=== PATIENT | female | born 1965 | race American Indian/Alaskan Native ===

== ENCOUNTER 2017-06-29 08:28 | Day surgery (SDC) | payer BC ==
[2017-06-29 08:57] VITALS: BMI 29.2
[2017-06-29] MEDS ORDERED: Propofol 10 mg/ml Inj (20 ML) ONE (09:52)
[2017-06-29] MEDS ORDERED: Lidocaine Hydrochloride 10 ML INJ ONE (09:53)
[2017-06-29] MEDS ORDERED: Lactated Ringer's 1,000 ML IV ONE (10:00)
--- NOTE | 2017-06-29 10:00 | CP.SDSHP ---
Same Day Surgery H & P - History Proposed Procedure: EGD/ DILATION Pre-Op Diagnosis: SEE NOTES - Previous Medical/Surgical History Cardiac: Hypertension Neuro: Other Misc: Other Pain: 4.Moderate Pain Previous Surgical History: ORTH. SX. - Allergies Allergies: Allergies No Known Allergies Allergy (Verified 06/29/17 08:56) - Physical Exam General Appearance: N Vital Signs: Vital Signs 06/29/17 09:02 Temperature 97.5 F L Pulse Rate 80 Respiratory 16 Rate Blood Pressure 128/79 O2 Sat by Pulse 98 Oximetry Neuro: WNL Heart: Other Lungs: WNL GI: Other - {Optional Preform as Required} Breast: WNL Abdomen: Other Rectal: Other Integument: WNL : WNL Ortho: Other ENT: WNL - Impression Pt. Evaluated Today:Candidate for Anesthesia & Procedure: Yes - Date & Time Time: 09:59 Short Stay Discharge - Short Stay Discharge Admitting Diagnosis/Reason for Visit: PYLORIC STENOSIS Disposition: HOME/ ROUTINE
[2017-06-29] MEDS ORDERED: Pantoprazole 40 mg EC Tab PO STA (10:01)
[2017-06-29] MEDS ORDERED: Belladonna-Phenobarbital PO STA (10:15)
[2017-06-29] MEDS ORDERED: metroNIDAZOLE IV 500 mg/100 ml 500 MG/100 ML BAG IVPB STA (10:15)
[2017-06-29] MEDS ORDERED: Sucralfate 1 gm/10 ml Oral Susp UD PO ONE (10:40)
[2017-06-29 12:20] VITALS: TEMP 97.8
[2017-06-29 12:22] VITALS: O2SAT 95
[2017-06-29 12:28] VITALS: BP 111/62; PULSE 80; RESP 17
== END 2017-06-29 11:45 | disposition home or self-care (01) ==
LOC: C.ENDO 08:28
PROVIDERS: ATTEND Specialist
DX: K31.1 Adult hypertrophic pyloric stenosis (principal); K44.9 Diaphragmatic hernia without obstruction or gangrene
CPT/HCPCS: 43235; J2704; J2765; J3010; J7120

== ENCOUNTER 2017-07-04 06:45 | Day surgery (SDC) | payer BC ==
[2017-07-04 08:18] VITALS: TEMP 97.6
--- NOTE | 2017-07-04 08:43 | CP.SDSHP ---
Same Day Surgery H & P - History Proposed Procedure: colonscopy Pre-Op Diagnosis: SEE NOTES - Allergies Allergies: Allergies No Known Allergies Allergy (Verified 07/04/17 07:47) - Physical Exam Vital Signs: Vital Signs 07/04/17 07:52 Temperature 97.6 F Pulse Rate 80 Respiratory 20 Rate Blood Pressure 130/82 O2 Sat by Pulse 98 Oximetry Mental Status: Alert & Oriented x3 Neuro: WNL Heart: Other Lungs: WNL GI: Other - {Optional Preform as Required} Breast: WNL Abdomen: Other Rectal: Other [employer]: Other : WNL Ortho: Other ENT: WNL - Impression Pt. Evaluated Today:Candidate for Anesthesia & Procedure: Yes - Date & Time Time: 08:43 Short Stay Discharge - Short Stay Discharge Admitting Diagnosis/Reason for Visit: RECTAL BLEEDING Disposition: HOME/ ROUTINE
[2017-07-04] MEDS ORDERED: Propofol 10 mg/ml Inj (20 ML) ONE (08:47)
[2017-07-04] MEDS ORDERED: Lactated Ringer's 500 ML IV SCH (09:00)
[2017-07-04] MEDS ORDERED: Pantoprazole 40 mg EC Tab PO STA (09:05)
[2017-07-04] MEDS ORDERED: Belladonna-Phenobarbital PO ONE (09:30)
[2017-07-04 10:14] VITALS: RESP 11; O2SAT 100
[2017-07-04 10:32] VITALS: BP 117/66; PULSE 88
== END 2017-07-04 10:50 | disposition home or self-care (01) ==
LOC: C.ENDO 06:45
PROVIDERS: ATTEND Specialist
DX: K57.90 Diverticulosis of intestine, part unspecified, without perforation or abscess without bleeding (principal); K64.8 Other hemorrhoids
CPT/HCPCS: 45380; 88305; 88313; 88342; J2704; J3010; J7120

== ENCOUNTER 2017-10-03 08:06 | Day surgery (SDC) | payer BC ==
[2017-10-03 08:32] VITALS: BMI 30.1
--- NOTE | 2017-10-03 09:40 | CP.SDSHP ---
Same Day Surgery H & P - History Proposed Procedure: EGD Pre-Op Diagnosis: SEE NOTES - Previous Medical/Surgical History Cardiac: Hypertension Misc: Other Pain: 4.Moderate Pain Previous Surgical History: ORTHO. SX. - Allergies Allergies: Allergies No Known Allergies Allergy (Verified 10/03/17 08:32) - Physical Exam General Appearance: N Vital Signs: Vital Signs 10/03/17 08:35 Temperature 97.5 F L Pulse Rate 78 Respiratory 18 Rate Blood Pressure 123/73 O2 Sat by Pulse 98 Oximetry Mental Status: Alert & Oriented x3 Neuro: WNL Heart: Other Lungs: WNL GI: Other - {Optional Preform as Required} Breast: WNL Abdomen: Other Rectal: Other Integument: WNL : WNL Ortho: Other ENT: WNL - Impression Pt. Evaluated Today:Candidate for Anesthesia & Procedure: Yes - Date & Time Time: 09:42 Short Stay Discharge - Short Stay Discharge Admitting Diagnosis/Reason for Visit: DYSPHAGIA Disposition: HOME/ ROUTINE Referrals: Froylan Helms MD [Primary Care Provider] -
[2017-10-03] MEDS ORDERED: Lidocaine Hydrochloride 5 ML INJ ONE (09:42)
[2017-10-03] MEDS ORDERED: Propofol 10 mg/ml Inj (20 ML) ONE ×2 (09:42→09:49)
[2017-10-03 10:15] VITALS: TEMP 97.3
[2017-10-03] MEDS ORDERED: Sucralfate 1 gm/10 ml Oral Susp UD PO ONE (10:15)
[2017-10-03] MEDS ORDERED: Belladonna-Phenobarbital PO ONE (10:30)
[2017-10-03 10:44] VITALS: O2SAT 100
[2017-10-03 10:49] VITALS: BP 110/60; PULSE 80; RESP 17
== END 2017-10-03 11:49 | disposition home or self-care (01) ==
LOC: C.ENDO 08:06
PROVIDERS: ATTEND Specialist
DX: K31.1 Adult hypertrophic pyloric stenosis (principal); R13.14 Dysphagia, pharyngoesophageal phase; K22.2 Esophageal obstruction
CPT/HCPCS: 43245; J2704

== ENCOUNTER 2017-10-24 08:54 | Day surgery (SDC) | payer BC ==
[2017-10-23 13:49] VITALS: BMI 29.5
[2017-10-24 09:50] VITALS: TEMP 97.7
--- NOTE | 2017-10-24 10:53 | CP.SDSHP ---
Same Day Surgery H & P - History Proposed Procedure: EGD/DILATION Pre-Op Diagnosis: SEE NOTES - Previous Medical/Surgical History Cardiac: Hypertension Neuro: Backaches Misc: Other Pain: 4.Moderate Pain - Allergies Allergies: Allergies No Known Allergies Allergy (Verified 10/24/17 09:38) - Physical Exam General Appearance: N Vital Signs: Vital Signs 10/24/17 09:05 Temperature 97.7 F Pulse Rate 79 Respiratory 19 Rate Blood Pressure 139/80 O2 Sat by Pulse 99 Oximetry Neuro: WNL Heart: Other Lungs: WNL GI: Other - {Optional Preform as Required} Breast: WNL Abdomen: Other Rectal: Other Integument: WNL : WNL Ortho: Other ENT: WNL - Impression Pt. Evaluated Today:Candidate for Anesthesia & Procedure: Yes - Date & Time Time: 10:54 Short Stay Discharge - Short Stay Discharge Admitting Diagnosis/Reason for Visit: ESOPHAGITIS, UNSPECIFIED Disposition: HOME/ ROUTINE Referrals: Froylan Helms MD [Primary Care Provider] -
[2017-10-24] MEDS ORDERED: Propofol 10 mg/ml Inj (20 ML) ONE (10:54)
[2017-10-24] MEDS ORDERED: Belladonna-Phenobarbital PO STA (10:55)
[2017-10-24] MEDS ORDERED: Sucralfate 1 gm/10 ml Oral Susp UD PO ONE (11:20)
[2017-10-24 13:35] VITALS: O2SAT 98
[2017-10-24 13:38] VITALS: RESP 15
[2017-10-24 13:46] VITALS: BP 109/72; PULSE 80
== END 2017-10-24 12:40 | disposition home or self-care (01) ==
LOC: C.SDS 08:54 → C.ENDO 08:54
PROVIDERS: ATTEND Specialist
DX: K20.9 Esophagitis, unspecified (principal); K25.9 Gastric ulcer, unspecified as acute or chronic, without hemorrhage or perforation; K31.1 Adult hypertrophic pyloric stenosis
CPT/HCPCS: 43245; J2001; J2704; J2765; J3010

== ENCOUNTER 2017-11-28 06:22 | Day surgery (SDC) | payer BC ==
[2017-10-23 13:49] VITALS: BMI 29.5
--- NOTE | 2017-11-28 07:50 | CP.SDSHP ---
Same Day Surgery H & P - History Proposed Procedure: EGD/DILATION Pre-Op Diagnosis: SEE NOTES - Previous Medical/Surgical History Cardiac: Hypertension Neuro: Backaches Pain: 4.Moderate Pain - Allergies Allergies: Allergies No Known Allergies Allergy (Verified 10/24/17 09:38) - Physical Exam General Appearance: N Vital Signs: Vital Signs 11/28/17 06:50 Temperature 97.4 F L Pulse Rate 77 Respiratory 19 Rate Blood Pressure 136/75 O2 Sat by Pulse 98 Oximetry Mental Status: Alert & Oriented x3 Neuro: WNL Heart: Other Lungs: WNL GI: Other - {Optional Preform as Required} Breast: WNL Abdomen: Other Rectal: Other Integument: WNL : WNL Ortho: Other ENT: WNL - Impression Pt. Evaluated Today:Candidate for Anesthesia & Procedure: Yes - Date & Time Time: 07:50 Short Stay Discharge - Short Stay Discharge Admitting Diagnosis/Reason for Visit: GASTRIC ULCER, PYLORIC STENOSIS Disposition: HOME/ ROUTINE Referrals: Froylan Helms MD [Primary Care Provider] -
[2017-11-28] MEDS ORDERED: Propofol 10 mg/ml Inj (20 ML) ONE ×2 (07:52→08:02)
[2017-11-28] MEDS ORDERED: Lidocaine Hydrochloride 5 ML INJ ONE (07:53)
[2017-11-28] MEDS ORDERED: Lactated Ringer's 1,000 ML IV ONE ×2 (07:55)
[2017-11-28] MEDS ORDERED: Lactated Ringer's 500 ML IV SCH (08:15)
[2017-11-28 08:32] VITALS: TEMP 97.1
[2017-11-28] MEDS ORDERED: Sucralfate 1 gm/10 ml Oral Susp UD PO ONE (08:35)
[2017-11-28 08:46] VITALS: O2SAT 99
[2017-11-28 09:49] VITALS: BP 103/66; PULSE 76; RESP 17
== END 2017-11-28 09:30 | disposition home or self-care (01) ==
LOC: C.ENDO 06:22
PROVIDERS: ATTEND Specialist
DX: K31.1 Adult hypertrophic pyloric stenosis (principal); K25.9 Gastric ulcer, unspecified as acute or chronic, without hemorrhage or perforation; K21.0 Gastro-esophageal reflux disease with esophagitis; K31.84 Gastroparesis; I10 Essential (primary) hypertension
CPT/HCPCS: 43245; J2704; J2765; J3010; J7120